=== PATIENT | female | born 1965 | race African-American/Black ===

== ENCOUNTER → 2016-11-26 | Day surgery (SDC) | payer MEDICARE, MEDICAID ==
[~2016-11-26] MED LIST: ACET-2178 PO; ATEN-42 PO; CINA30 PO; HYDR-4133 PO; HYDR-4134 PO; LEVE500T19 PO; LIDOCAINE HCL 1% 20ML VIAL (Pyxis) INJ ONE; RENA-VITE PO; SEVE800T PO; SODIUM BICARBONATE 4.2% 5 MEQ/10 ML DISP.SYRIN IV ONE; SUCROFERRIC OXYHYDROXIDE; TRAM50TA3 PO
== END | disposition home or self-care (01) ==
LOC: RAD 09:43
PROVIDERS: ATTEND Internal Medicine Nephrology
DX: R18.8 Other ascites (principal)
CPT/HCPCS: 49083; 82150; 82945; 83615; 84157; 87070; 87205; 88108; 88312; 89050; J3490

== ENCOUNTER 2017-01-23 10:27 | Day surgery (SDC) | payer MEDICARE, MEDICAID ==
[~2017-01-23] VITALS: Ht 167.6 cm; Wt 49.1 kg
[~2017-01-23 10:27] MED LIST changes: -LIDOCAINE HCL 1% 20ML VIAL (Pyxis) INJ ONE; +REN800 PO; -SEVE800T PO; -SODIUM BICARBONATE 4.2% 5 MEQ/10 ML DISP.SYRIN IV ONE
[2017-01-23] MEDS ORDERED: GELATIN SPONGE,ABSORBABLE SZ 100 ONE (11:08)
[2017-01-23] MEDS ORDERED: HEPARIN SODIUM 1,000 UNIT/1ML VIAL IV ONE (11:09)
[2017-01-23] MEDS ORDERED: THROMBIN (BOVINE) 5000 UNITS/VIAL TOP ONE (11:09)
[2017-01-23] MEDS ORDERED: BACITRACIN ZINC 15GM TUBE TOP ONE (11:09)
[2017-01-23] MEDS ORDERED: LIDOCAINE HCL 1% 20ML VIAL (Pyxis) INJ ONE ×2 (11:10→13:28)
[2017-01-23] MEDS ORDERED: BUPIVACAINE HCL/PF 0.5% (5MG/ML) 10ML ONE (11:10)
[2017-01-23] MEDS ORDERED: DIPH25CA83 PO (11:50)
[2017-01-23] MEDS ORDERED: OLME40TA12 PO (11:50)
[2017-01-23] MEDS ORDERED: AMYL1CAP61 PO (11:57)
[2017-01-23] MEDS ORDERED: VALS320T2 PO (11:57)
[2017-01-23] MEDS ORDERED: FOLI1TAB87 PO (11:57)
[2017-01-23 12:00] LABS: EOSINOPHILS % 5.7 % (0.0-5.0); HEMATOCRIT. 32.6 % (36.0-48.0); HEMOGLOBIN. 10.6 g/dL (12.0-16.0); LYMPHOCYTES % 17.7 % (20.0-50.0); MEAN CORPUSCULAR HEMOGLOBIN 29.9 pg (28.0-32.0); MEAN CORPUSCULAR VOLUME 92.1 fL (81.0-99.0); MEAN PLATELET VOLUME 8.8 fl (7.4-10.4); MONOCYTES % 11.7 % (2.0-8.0); NEUTROPHILS % 63.9 % (40.0-76.0); PLATELET 125 x1000/uL (130-400); RED BLOOD CELL COUNT 3.54 mill/uL (4.2-5.4); RED CELL DISTRIBUTION WIDTH 21.1 % (11.6-14.6)
[2017-01-23] MEDS ORDERED: SODIUM CHLORIDE 0.9% 500 ML IV ONE (12:00)
[2017-01-23 12:09] LABS: INR 1.3; PARTIAL THROMBOPLASTIN TIME 32.9 sec (23.4-31.0); PROTHROMBIN TIME 13.8 sec (9.4-11.6)
[2017-01-23] MEDS ORDERED: FENTANYL CITRATE/PF 50MCG/ML 2ML VIAL ONE (12:30)
[2017-01-23] MEDS ORDERED: MIDAZOLAM HCL 2 MG/2 ML VIAL ONE (12:31)
[2017-01-23] MEDS ORDERED: ALBUTEROL 90MCG/PUFF 17GM INHALER INH ONE (12:51)
[2017-01-23] MEDS ORDERED: ONDANSETRON HCL 4MG/2ML VIAL IV PRN (13:15)
[2017-01-23] MEDS ORDERED: LABETALOL HCL 20MG/4ML CARPUJECT IV PRN (13:15)
[2017-01-23] MEDS ORDERED: MEPERIDINE HCL/PF 25MG/ML CPJ IV PRN (13:15)
[2017-01-23] MEDS ORDERED: DEXAMETHASONE 4MG/ML 1ML VIAL ONE (13:28)
[2017-01-23] MEDS ORDERED: CEFAZOLIN SODIUM 1000MG/VIAL ONE (13:28)
[2017-01-23] MEDS ORDERED: PHENYLEPHRINE HCL 10 MG/ML 1ML (IV VIAL) IV ONE (13:28)
[2017-01-23] MEDS ORDERED: EPHEDRINE SULFATE 50MG/ML VIAL ONE (13:28)
[2017-01-23] MEDS ORDERED: PROPOFOL 200MG/20ML VIAL IV ONE (13:28)
[2017-01-23] MEDS ORDERED: SODIUM CHLORIDE 0.9% 10ML VIAL ONE (13:28)
[2017-01-23] MEDS: HYDROMORPHONE HCL/PF 2MG/ML CPJ IV PRN ×4 (14:26→14:51)
[2017-01-23 14:51] VITALS: BP 166/90
== END 2017-01-23 15:30 | disposition home or self-care (01) ==
LOC: OR 10:27
PROVIDERS: ATTEND Surgery Vascular Surgery
DX: I77.0 Arteriovenous fistula, acquired (principal); J44.9 Chronic obstructive pulmonary disease, unspecified; I10 Essential (primary) hypertension; G40.802 Other epilepsy, not intractable, without status epilepticus; Z86.2 Personal history of diseases of the blood and blood-forming organs and certain disorders involving the immune mechanism
CPT/HCPCS: 36415; 36830; 37607; 80048; 85025; 85610; 85730; 93005; A4216; C1768; J0171; J0690; J1100; J1170; J1644; J2250; J2370; J2405; J3010; J3490; J7040; J2704

== ENCOUNTER 2017-01-29 10:28 | Inpatient (IN) | payer MEDICARE, MEDICAID ==
[~2017-01-29] VITALS: Ht 167.6 cm; Wt 54.0 kg
[~2017-01-29 10:28] MED LIST changes: +AMYL1CAP61 PO; +DIPH25CA83 PO; +FOLI1TAB87 PO; +OLME40TA12 PO; -RENA-VITE PO; +VALS320T2 PO
[2017-01-29 11:16] LABS: HEMATOCRIT. 33.2 % (36.0-48.0); HEMOGLOBIN. 10.8 g/dL (12.0-16.0); MEAN CORPUSCULAR HEMOGLOBIN 29.3 pg (28.0-32.0); MEAN CORPUSCULAR VOLUME 90.1 fL (81.0-99.0); MEAN PLATELET VOLUME 8.5 fl (7.4-10.4); PLATELET 140 x1000/uL (130-400); RED BLOOD CELL COUNT 3.69 mill/uL (4.2-5.4); RED CELL DISTRIBUTION WIDTH 19.8 % (11.6-14.6)
[2017-01-29 11:23] LABS: INR 1.2; PROTHROMBIN TIME 12.7 sec (9.4-11.6)
[2017-01-29 11:38] LABS: PLATELET ESTIMATE NORMAL
[2017-01-29] MEDS ORDERED: DEXTROSE 50% WATER 50ML SYRINGE IV ONE (12:45)
[2017-01-29] MEDS ORDERED: INSULIN REGULAR (HUMULIN R) UD 100 UNITS/ML SYR IV ONE (12:45)
[2017-01-29] MEDS ORDERED: CALCIUM CHLORIDE 1GM/10ML SYR IV ONE (12:45)
[2017-01-29] MEDS ORDERED: MORPHINE SULFATE 4 MG/ML CPJ (NOT FOR IM USE) IV NR (13:15)
[2017-01-29] MEDS ORDERED: MORPHINE SULFATE 2 MG/ML CPJ (NOT FOR IM USE) IV ONE (13:15)
[2017-01-29] MEDS ORDERED: INSULIN REGULAR (HUMULIN R) 300UNITS/3ML IV NR (13:15)
[2017-01-29] MEDS ORDERED: LEVETIRACETAM 250MG TABLET PO PRN (15:00)
[2017-01-29] MEDS ORDERED: ACETAMINOPHEN 325MG TABLET PO PRN (16:15)
[2017-01-29] MEDS ORDERED: NA PHOS,M-B/NA PHOS,DI-BA ENEMA 118ML PR PRN (16:15)
[2017-01-29] MEDS ORDERED: GUAIFENESIN 200MG/10ML SUGAR FREE UDC PO PRN (16:15)
[2017-01-29] MEDS ORDERED: IPRATROPIUM/ALBUTEROL 0.5-3(2.5)MG/3ML NEB INH PRN (16:15)
[2017-01-29] MEDS ORDERED: DIPHENHYDRAMINE 50MG/ML VIAL IV PRN (16:15)
[2017-01-29] MEDS ORDERED: ONDANSETRON HCL 4MG/2ML VIAL IV PRN (16:15)
[2017-01-29] MEDS ORDERED: MAGNESIUM/ALUMINUM HYDROXIDE/SIMETHICONE 30ML UDC PO PRN (16:15)
[2017-01-29] MEDS ORDERED: CLONIDINE 0.1MG TABLET PO PRN (16:15)
[2017-01-29] MEDS ORDERED: DOCUSATE SODIUM 100MG CAPSULE PO PRN (16:15)
[2017-01-29] MEDS ORDERED: SEVELAMER CARBONATE 800 MG TABLET PO SCH (17:00)
[2017-01-29] MEDS: METOPROLOL TARTRATE 25MG TABLET PO SCH (17:40)
[2017-01-29 17:57] VITALS: BP 145/83
[2017-01-29 18:04] VITALS: BP 145/83
[2017-01-29] MEDS: LIPASE/PROTEASE/AMYLASE 4,200/10,000/17,5000 UNITS CAP DR PO SCH (18:10)
[2017-01-29] MEDS: HYDROCODONE/ACETAMINOPHEN 5/325MG TABLET PO PRN ×2 (18:40→23:42)
[2017-01-29] MEDS: SEVELAMER CARBONATE 800 MG TABLET PO SCH (18:40)
[2017-01-29 20:00] VITALS: BP 124/82
[2017-01-29] MEDS: LEVETIRACETAM 500MG TABLET PO SCH (20:14)
[2017-01-29] MEDS ORDERED: HEPARIN SODIUM 1,000 UNIT/1ML VIAL IV ONE (21:00)
[2017-01-29 21:07] VITALS: BP 124/82
[2017-01-30] VITALS (10 sets, daily range): BP systolic 123–161; BP diastolic 67–94
[2017-01-30] MEDS: HYDROCODONE/ACETAMINOPHEN 5/325MG TABLET PO PRN ×2 (06:08→10:03)
[2017-01-30 06:23] LABS: BASOPHILS % 1.2 % (0.0-2.0); EOSINOPHILS % 5.8 % (0.0-5.0); HEMATOCRIT. 28.8 % (36.0-48.0); HEMOGLOBIN. 9.5 g/dL (12.0-16.0); LYMPHOCYTES % 20.8 % (20.0-50.0); MEAN CORPUSCULAR HEMOGLOBIN 29.6 pg (28.0-32.0); MEAN CORPUSCULAR VOLUME 89.6 fL (81.0-99.0); MEAN PLATELET VOLUME 9.1 fl (7.4-10.4); MONOCYTES % 14.4 % (2.0-8.0); NEUTROPHILS % 57.8 % (40.0-76.0); PLATELET 120 x1000/uL (130-400); RED BLOOD CELL COUNT 3.22 mill/uL (4.2-5.4); RED CELL DISTRIBUTION WIDTH 19.6 % (11.6-14.6)
[2017-01-30 08:03] LABS: CARBON DIOXIDE 25 mEq/L (21-32); CHLORIDE 101 mEq/L (98-107)
[2017-01-30] MEDS ORDERED: PIOGLITAZONE 45MG TABLET PO SCH (09:00)
[2017-01-30] MEDS ORDERED: LISINOPRIL 40MG TABLET PO SCH (09:00)
[2017-01-30] MEDS: LIPASE/PROTEASE/AMYLASE 4,200/10,000/17,5000 UNITS CAP DR PO SCH ×2 (09:40→13:40)
[2017-01-30] MEDS: LEVETIRACETAM 500MG TABLET PO SCH (09:40)
[2017-01-30] MEDS: METOPROLOL TARTRATE 25MG TABLET PO SCH (09:40)
[2017-01-30] MEDS: SEVELAMER CARBONATE 800 MG TABLET PO SCH ×2 (09:40→13:40)
[2017-01-30] MEDS ORDERED: SODIUM BICARBONATE 4% (2.4MEQ) 5ML VIAL IV ONE (10:48)
[2017-01-30] MEDS ORDERED: IOHEXOL-300 100 ML BOTTLE ONE (10:48)
[2017-01-30] MEDS ORDERED: LIDOCAINE HCL 1% 20ML VIAL (Pyxis) INJ ONE (10:48)
[2017-01-30] MEDS ORDERED: HEPARIN 1000 UNITS/ML 10ML ONE (10:49)
[2017-01-30] MEDS ORDERED: CEFAZOLIN 1000MG PREMIX 50 ML IV ONE ×2 (11:00→11:15)
[2017-01-30] MEDS ORDERED: FENTANYL CITRATE/PF 50MCG/ML 2ML VIAL ONE (11:09)
[2017-01-30] MEDS ORDERED: FENTANYL CITRATE/PF 50MCG/ML 2ML VIAL IV ONE (11:30)
== END 2017-01-30 14:56 | disposition home or self-care (01) | DRG 314 ==
LOC: ER 10:37 → 7WST 15:44 → ENRESERV 15:57
PROVIDERS: ADMIT Hospitalist; ATTEND Internal Medicine Nephrology
PROC: 02HV33Z Insertion of Infusion Device into Superior Vena Cava, Percutaneous Approach (ICD-10-PCS; 2017-01-29)
PROC: B548ZZA Ultrasonography of Superior Vena Cava, Guidance (ICD-10-PCS; 2017-01-29)
PROC: B51W1ZZ Fluoroscopy of Dialysis Shunt/Fistula using Low Osmolar Contrast (ICD-10-PCS; principal; 2017-01-30)
DX: T82.590A Other mechanical complication of surgically created arteriovenous fistula, initial encounter (principal); N18.6 End stage renal disease; I12.0 Hypertensive chronic kidney disease with stage 5 chronic kidney disease or end stage renal disease; E11.22 Type 2 diabetes mellitus with diabetic chronic kidney disease; E87.1 Hypo-osmolality and hyponatremia; E87.5 Hyperkalemia; K86.89 Other specified diseases of pancreas; I87.1 Compression of vein; N25.81 Secondary hyperparathyroidism of renal origin; Y71.2 Prosthetic and other implants, materials and accessory cardiovascular devices associated with adverse incidents; D63.1 Anemia in chronic kidney disease; F10.20 Alcohol dependence, uncomplicated; F17.200 Nicotine dependence, unspecified, uncomplicated; G40.909 Epilepsy, unspecified, not intractable, without status epilepticus; Z79.84 Long term (current) use of oral hypoglycemic drugs; Z99.2 Dependence on renal dialysis; Z82.49 Family history of ischemic heart disease and other diseases of the circulatory system; Z91.11 Patient's noncompliance with dietary regimen; Z79.899 Other long term (current) drug therapy
CPT/HCPCS: 36415; 36556; 36901; 71010; 76937; 80048; 80053; 82962; 85025; 85610; 93970; 96374; 96375; 99291; C1752; C1887; J0690; J1644; J1815; J2270; J3010; J3490; J7030; Q9967